=== PATIENT | female | born 1965 | race Caucasian/White ===

== ENCOUNTER 2019-04-05 12:55 | Emergency (ER) | payer BC, OTHER ==
[~2019-04-05] VITALS: Ht 160 cm; Wt 51.3 kg
[2019-04-05] MEDS ORDERED: diphenhydrAMINE 50 MG/1 ML VIAL IV ONE (13:30)
[2019-04-05] MEDS ORDERED: PROCHLORPERAZINE EDISYLATE 10 MG/2 ML VIAL IV ONE (13:30)
[2019-04-05] MEDS ORDERED: IV NORMAL SALINE 1000 ML BAG IV ONE (13:30)
[2019-04-05] MEDS ORDERED: PROCHLORPERAZINE EDISYLATE 10 MG/2 ML VIAL ONE (13:33)
[2019-04-05] MEDS ORDERED: diphenhydrAMINE 50 MG/1 ML VIAL ONE (13:33)
[2019-04-05] MEDS ORDERED: KETOROLAC TROMETHAMINE 30 MG INJ IVP ONE (14:00)
[2019-04-05] MEDS ORDERED: KETOROLAC TROMETHAMINE 60 MG INJ IM ONE (14:01)
--- NOTE | 2019-04-05 15:38 | NUR ---
Patient discharged to home in stable conditon. Written and verbal after care instructions given. Patient verbalizes understanding of instructions.pt walks i nsteady gait. pt deneis any pain or nausea at this time. pt says feels better. pt so at bedside to take the pt home
[2019-04-05 15:40] VITALS: BP 129/81
== END 2019-04-05 15:41 | disposition home or self-care (01) ==
LOC: ER 12:55
DX: R51 Headache (principal); M62.838 Other muscle spasm
CPT/HCPCS: 70450; 96374; 96375; 99284; J0780; J1200; J1885; A4663; J7030